=== PATIENT | female | born 1945 | race Caucasian/White ===

== ENCOUNTER 2024-09-04 13:00 | Inpatient (IN) | payer MEDICARE ==
[~2024-09-04] VITALS: Ht 152.4 cm; Wt 68.5 kg
[2024-09-04] MEDS: PIPERACILLIN/TAZO 3.375G/50ML 50 ML IV SCH (02:00)
[2024-09-04] MEDS: CALCIUM GLUCONATE 1GM PREMIX 50 ML IV NR (02:00)
[2024-09-04] MEDS: BLOOD SUGAR DIAGNOSTIC STRIP TEST SCH (02:00)
[2024-09-04] MEDS: INSULIN LISPRO 100 UNITS/ML SUBCUT SCH (03:00)
[2024-09-04] MEDS: FAMOTIDINE 20MG TABLET PO SCH (03:00)
[2024-09-04] MEDS: SODIUM CHLORIDE 0.9% (SEPSIS BOLUS) IV ONE (13:25)
[2024-09-04 13:43] LABS: HEMATOCRIT. 35.5 % (36.0-48.0); HEMOGLOBIN. 10.8 g/dL (12.0-16.0); MEAN CORPUSCULAR HEMOGLOBIN 29.5 pg (28.0-32.0); MEAN CORPUSCULAR HGB CONC 30.3 g/dL (31.0-37.0); MEAN CORPUSCULAR VOLUME 97.3 fL (81.0-99.0); MEAN PLATELET VOLUME 10.6 fl (7.4-10.4); PLATELET 254 x1000/uL (130-400); RED BLOOD CELL COUNT 3.65 mill/uL (4.2-5.4); RED CELL DISTRIBUTION WIDTH 16.4 % (11.6-14.6); WHITE BLOOD COUNT 17.1 x1000/uL (4.5-11.0)
[2024-09-04] MEDS: NOREPINEPHRINE 8MG/250ML PMX 250 ML IV ONE ×2 (13:44→21:44)
[2024-09-04 13:45] LABS: CHLORIDE 84 mEq/L (98-107); POTASSIUM 5.1 mEq/L (3.5-5.1); SODIUM 135 mEq/L (136-145)
[2024-09-04 13:46] LABS: CALCIUM 8.6 mg/dL (8.7-10.4)
[2024-09-04 13:51] LABS: GLUCOSE 149 mg/dL (70-105); UREA NITROGEN BLOOD 87 mg/dL (9-23)
[2024-09-04 13:52] LABS: DIFFERENTIAL COMMENT 1; TROPONIN I HIGH SENSITIVITY 12 ng/L (3.0-34)
[2024-09-04 13:53] LABS: ALANINE AMINOTRANSFERASE 12 IU/L (10-49); ALBUMIN 3.5 g/dL (3.2-4.8); ASPARTATE AMINOTRANSFERASE 12 IU/L (<34); BILIRUBIN TOTAL 0.2 mg/dL (0.1-1.0); PROTEIN TOTAL 6.1 g/dL (6.0-8.3)
[2024-09-04 14:03] LABS: CARBON DIOXIDE < 10 mEq/L (21-32); CREATININE 6.5 mg/dL (0.6-1.0)
[2024-09-04 14:04] LABS: BILIRUBIN DIRECT < 0.1 mg/dL (<=3.0)
[2024-09-04 14:06] LABS: LACTIC ACID 16.1 mmol/L (0.4-2.0)
[2024-09-04 14:24] LABS: INR 1.1; PROTHROMBIN TIME 12.1 sec (9.6-11.0)
[2024-09-04 15:43] LABS: ANISOCYTOSIS 1+; GIANT PLATELETS 1+; PLATELET ESTIMATE NORMAL
[2024-09-04] MEDS ORDERED: VANCOMYCIN 1G PREMIX 200 ML IV ONE (15:45)
[2024-09-04] MEDS: PIPERACILLIN/TAZO 3.375G/50ML 50 ML IV ONE (16:16)
[2024-09-04] MEDS ORDERED: MAGNESIUM/ALUMINUM HYDROXIDE/SIMETHICONE 30ML UDC PO PRN (16:30)
[2024-09-04] MEDS ORDERED: ONDANSETRON HCL 4MG/2ML INJ IV PRN (16:30)
[2024-09-04] MEDS: SODIUM BICARBONATE 8.4% 50MEQ/50ML SYR IV NR (16:30)
[2024-09-04] MEDS ORDERED: CLONIDINE 0.1MG TABLET PO PRN (16:30)
[2024-09-04] MEDS ORDERED: IPRATROPIUM/ALBUTEROL 0.5-3(2.5)MG/3ML NEB HHN PRN (16:30)
[2024-09-04] MEDS ORDERED: ACETAMINOPHEN 325MG TABLET PO PRN (16:30)
[2024-09-04] MEDS ORDERED: NOREPINEPHRINE 8 MG in DEXT 5% WATER 242 ML IV PRN (16:30)
[2024-09-04] MEDS ORDERED: DEXTROSE 50% WATER 50ML SYRINGE IV PRN (16:30)
[2024-09-04] MEDS ORDERED: NOREPINEPHRINE 8MG/250ML PMX 250 ML IV PRN (16:45)
[2024-09-04 17:36] LABS: T4 FREE 1.08 ng/dL (0.89-1.76)
[2024-09-04 17:37] LABS: THYROID STIMULATING HORMONE 3.21 uIU/mL (0.55-4.78)
[2024-09-04 17:50] LABS: HEPATITIS B SURFACE ANTIGEN NEGATIVE (Negative)
[2024-09-04] MEDS: SODIUM BICARBONATE 150 MEQ in DEXTROSE 5% WATER 850 ML IV SCH (18:04)
[2024-09-04] MEDS: VANCOMYCIN 1G PREMIX 200 ML IV NR (18:04)
[2024-09-04 18:10] LABS: HEPATITIS A AB IGM NEGATIVE (Negative)
[2024-09-04 18:11] LABS: HEPATITIS B CORE AB IGM NEGATIVE (Negative); HEPATITIS C AB NON REACTIVE (Neg) (Negative)
[2024-09-04] MEDS: SODIUM CHLORIDE 0.9% 1,000 ML IV SCH (18:13)
[2024-09-04] MEDS ORDERED: PHENYLEPHRINE 50 MG in DEXT 5% WATER 245 ML IV PRN (19:15)
[2024-09-04] MEDS ORDERED: PIPERACILLIN/TAZO 3.375G/50ML 50 ML IV SCH (21:00)
[2024-09-04] MEDS ORDERED: SODIUM CHLORIDE 0.9% 250 ML IV NR (21:00)
[2024-09-04 22:11] LABS: CHLORIDE 97 mEq/L (98-107); POTASSIUM 4.1 mEq/L (3.5-5.1)
[2024-09-04 22:13] LABS: CALCIUM 6.7 mg/dL (8.7-10.4)
[2024-09-04 22:17] LABS: GLUCOSE 207 mg/dL (70-105)
[2024-09-04 22:18] LABS: UREA NITROGEN BLOOD 87 mg/dL (9-23)
[2024-09-04 22:29] LABS: CREATINE KINASE 416 IU/L (34-145)
[2024-09-04 22:31] LABS: CARBON DIOXIDE < 10 mEq/L (21-32); SODIUM 147 mEq/L (136-145)
[2024-09-04 22:32] LABS: CREATININE 5.4 mg/dL (0.6-1.0); LACTIC ACID 18.4 mmol/L (0.4-2.0); PHOSPHORUS 12.6 mg/dL (2.5-4.9)
[2024-09-04 22:33] LABS: TROPONIN I HIGH SENSITIVITY 59 ng/L (3.0-34)
[2024-09-04] MEDS ORDERED: VASOPRESSIN 20 UNIT in SODIUM CHLORIDE 0.9% 99 ML IV PRN (23:45)
[2024-09-05] VITALS (83 sets, daily range): BP systolic 67–145; BP diastolic 38–121; PULSE 92–131; RESP 14–28; TEMP 35.78064–37.00296; O2SAT 91–100
[2024-09-05] MEDS: SODIUM BICARBONATE 8.4% 50MEQ/50ML SYR IV NR (00:33)
[2024-09-05] MEDS: PHENYLEPHRINE 100 MG in DEXT 5% WATER 250 ML IV PRN (01:34)
[2024-09-05] MEDS: VASOPRESSIN 20 UNIT in SODIUM CHLORIDE 0.9% 99 ML IV PRN (01:35)
[2024-09-05] MEDS: CALCIUM ACETATE 667MG CAPSULE PO NR (02:00)
[2024-09-05] MEDS ORDERED: AMIODARONE HCL 150 MG in DEXT 5% WATER 100 ML IV ONE (03:00)
[2024-09-05] MEDS ORDERED: AMIODARONE HCL 900 MG in DEXT 5% WATER 482 ML IV SCH (03:00)
[2024-09-05] MEDS: HYDROCORTISONE SOD SUCCINATE 100 MG/2 ML VIAL IV SCH (03:29)
[2024-09-05] MEDS: AMIODARONE 150MG/100ML PREMIX IV NR (03:29)
[2024-09-05] MEDS: NOREPINEPHRINE 8MG/250ML PMX 250 ML IV PRN ×2 (03:41→06:26)
[2024-09-05] MEDS ORDERED: PHENYLEPHRINE 50MG/250ML PMX 250 ML IV PRN (04:00)
[2024-09-05] MEDS ORDERED: VASOPRESSIN 20 UNIT in SODIUM CHLORIDE 0.9% 99 ML IV PRN (04:00)
[2024-09-05] MEDS: AMIODARONE 360MG/200ML D5W PREMIX IV SCH (04:03)
[2024-09-05 04:34] LABS: HEMATOCRIT. 28.1 % (36.0-48.0); HEMOGLOBIN. 8.8 g/dL (12.0-16.0); MEAN CORPUSCULAR HGB CONC 31.2 g/dL (31.0-37.0); MEAN CORPUSCULAR VOLUME 96.1 fL (81.0-99.0); MEAN PLATELET VOLUME 10.2 fl (7.4-10.4); PLATELET 193 x1000/uL (130-400); RED BLOOD CELL COUNT 2.93 mill/uL (4.2-5.4); WHITE BLOOD COUNT 16.5 x1000/uL (4.5-11.0)
[2024-09-05 04:37] LABS: CHLORIDE 97 mEq/L (98-107); POTASSIUM 4.8 mEq/L (3.5-5.1); SODIUM 147 mEq/L (136-145)
[2024-09-05 04:39] LABS: CALCIUM 6.7 mg/dL (8.7-10.4)
[2024-09-05 04:42] LABS: LACTIC ACID 15.3 mmol/L (0.4-2.0)
[2024-09-05 04:43] LABS: GLUCOSE 354 mg/dL (70-105)
[2024-09-05 04:44] LABS: UREA NITROGEN BLOOD 85 mg/dL (9-23)
[2024-09-05 05:01] LABS: CARBON DIOXIDE < 10 mEq/L (21-32); CREATININE 5.3 mg/dL (0.6-1.0)
[2024-09-05 05:25] LABS: DIFFERENTIAL COMMENT 1
[2024-09-05] MEDS ORDERED: DEXTROSE 50% WATER 50ML SYRINGE IV PRN (08:30)
[2024-09-05] MEDS: NOREPINEPHRINE 32 MG in DEXT 5% WATER 218 ML IV PRN (08:48)
[2024-09-05] MEDS: FAMOTIDINE 20MG TABLET PO SCH (09:00)
[2024-09-05] MEDS: ASPIRIN 81MG TABLET PO SCH (09:00)
[2024-09-05] MEDS: INSULIN LISPRO 100 UNITS/ML SUBCUT SCH (09:11)
[2024-09-05] MEDS: ENOXAPARIN 30MG/0.3ML SYR SUBCUT SCH (09:12)
[2024-09-05] MEDS: INSULIN GLARGINE 100 UNITS/ML SUBCUT SCH (09:13)
[2024-09-05] MEDS ORDERED: INSULIN GLARGINE 100 UNITS/ML SUBCUT SCH (10:00)
[2024-09-05 10:17] LABS: ANISOCYTOSIS 1+; NUCLEATED RED BLOOD CELLS 1 /100 WBC; PLATELET ESTIMATE NORMAL
[2024-09-05 10:29] LABS: CLARITY URINE CLEAR (CLEAR); COLOR URINE YELLOW (YELLOW); GLUCOSE URINE 3+ (NEGATIVE); PH URINE 5.5 (4.5-8.0); PROTEIN URINE 1+ (NEGATIVE); SPECIFIC GRAVITY URINE 1.014 (1.005-1.030)
[2024-09-05 10:30] LABS: KETONES URINE 3+ (NEGATIVE); LEUKOCYTE ESTERASE URINE TRACE (NEGATIVE); NITRITE URINE NEGATIVE (NEGATIVE); OCCULT BLOOD URINE 2+ (NEGATIVE); UROBILINOGEN URINE 0.2 E.U./dL (0.2-1.0)
[2024-09-05 10:52] LABS: SQUAMOUS EPITHELIAL CELL URINE FEW /lpf (RARE/1+)
[2024-09-05 10:53] LABS: BACTERIA URINE TRACE; RBC URINE 0-2 /hpf (0-2)
[2024-09-05 11:15] LABS: *AMPHETAMINES SCREEN URINE NEGATIVE (NEGATIVE); *BARBITURATES SCREEN URINE NEGATIVE (NEGATIVE); *BENZODIAZEPINES SCREEN URINE NEGATIVE (NEGATIVE); *COCAINE SCREEN URINE NEGATIVE (NEGATIVE); CANNABINOID URINE SCREEN NEGATIVE (NEGATIVE); ECSTASY MDMA SCREEN URINE NEGATIVE (NEGATIVE); METHADONE URINE SCREEN NEGATIVE (NEGATIVE); OPIATES URINE SCREEN NEGATIVE (NEGATIVE); PHENCYCLIDINE URINE SCREEN NEGATIVE (NEGATIVE)
[2024-09-05 11:55] LABS: BG CARBOXYHEMOGLOBIN 0.3 % (0.5-1.5); BG DEOXYHEMOGLOBIN 4.4 % (0.0-5.0); BG FRACTION INSPIRED OXYGEN 21; BG HCO3 ACT 14.9 mmol/L (21.0-28.0); BG METHEMOGLOBIN 0.3 % (0.5-1.5); BG OXYGEN SATURATION 95.6 % (94.0-98.0); BG PCO2 18.3 mmHg (32.0-45.0); BG PO2 73.9 mmHg (83.0-108.0); BG VENT MODE ROOM AIR
[2024-09-05] MEDS: SODIUM BICARBONATE 150 MEQ in DEXTROSE 5% WATER 850 ML IV SCH (12:41)
[2024-09-05] MEDS: BLOOD SUGAR DIAGNOSTIC STRIP TEST SCH (12:41)
[2024-09-05 17:07] LABS: POTASSIUM 3.2 mEq/L (3.5-5.1)
[2024-09-05 17:09] LABS: CALCIUM 7.1 mg/dL (8.7-10.4)
[2024-09-05 17:16] LABS: BETA HYDROXYBUTYRATE 4.5 mMol/L (0.0-0.3)
[2024-09-05] MEDS: VANCOMYCIN 500MG PREMIX 100 ML IV SCH (18:23)
[2024-09-05] MEDS ORDERED: POTASSIUM CHLORIDE 20 MEQ in DEXT 5% WATER 90 ML IV ONE (19:00)
[2024-09-05] MEDS: METOPROLOL SUCCINATE 50MG ER TABLET PO SCH (19:15)
[2024-09-05] MEDS: KCL 20MEQ/100ML PREMIX 100 ML IV SCH (20:01)
[2024-09-05 20:08] LABS: PHOSPHORUS 2.9 mg/dL (2.5-4.9)
[2024-09-06] VITALS (98 sets, daily range): BP systolic 61–142; BP diastolic 35–129; PULSE 80–133; RESP 13–25; TEMP 36.61404–37.16964; O2SAT 90–100
[2024-09-06] MEDS ORDERED: FURO80TA3 MT (00:03)
[2024-09-06] MEDS ORDERED: RIVA20TA MT (00:03)
[2024-09-06] MEDS ORDERED: SIMV-43 MT (00:03)
[2024-09-06] MEDS ORDERED: COR12 MT (00:03)
[2024-09-06] MEDS ORDERED: EMPA25TA MT (00:03)
[2024-09-06] MEDS ORDERED: AMLO10TA80 MT (00:03)
[2024-09-06] MEDS ORDERED: METF-1150 PO (00:03)
[2024-09-06] MEDS ORDERED: ENAL-77 MT (00:03)
[2024-09-06] MEDS: MAGNESIUM 2 G PREMIX 50 ML IV NR (00:08)
[2024-09-06 06:34] LABS: CARBON DIOXIDE 33 mEq/L (21-32); CHLORIDE 96 mEq/L (98-107); POTASSIUM 3.4 mEq/L (3.5-5.1); SODIUM 141 mEq/L (136-145)
[2024-09-06 06:35] LABS: CALCIUM 6.8 mg/dL (8.7-10.4)
[2024-09-06 06:39] LABS: CREATININE 2.7 mg/dL (0.6-1.0); GLUCOSE 268 mg/dL (70-105)
[2024-09-06 06:40] LABS: UREA NITROGEN BLOOD 41 mg/dL (9-23)
[2024-09-06 06:42] LABS: PHOSPHORUS 2.3 mg/dL (2.5-4.9)
[2024-09-06 06:55] LABS: HEMATOCRIT. 30.2 % (36.0-48.0); HEMOGLOBIN. 10.3 g/dL (12.0-16.0); MEAN CORPUSCULAR HEMOGLOBIN 29.7 pg (28.0-32.0); MEAN CORPUSCULAR HGB CONC 34.3 g/dL (31.0-37.0); MEAN CORPUSCULAR VOLUME 86.7 fL (81.0-99.0); MEAN PLATELET VOLUME 9.5 fl (7.4-10.4); PLATELET 150 x1000/uL (130-400); RED BLOOD CELL COUNT 3.48 mill/uL (4.2-5.4); RED CELL DISTRIBUTION WIDTH 14.8 % (11.6-14.6); WHITE BLOOD COUNT 12.4 x1000/uL (4.5-11.0)
[2024-09-06 07:19] LABS: DIFFERENTIAL COMMENT 1
[2024-09-06] MEDS: INSULIN GLARGINE 100 UNITS/ML SUBCUT SCH (09:40)
[2024-09-06 10:45] LABS: PLATELET ESTIMATE NORMAL
[2024-09-06] MEDS: POTASSIUM PHOSPHATE 20 MMOL in SODIUM CHLORIDE 0.9% 243.3333 ML IV NR (11:00)
[2024-09-06] MEDS: AMIODARONE 200MG TABLET PO NR (14:51)
[2024-09-06] MEDS: SODIUM CHLORIDE 0.45% 1,000 ML IV SCH (16:17)
[2024-09-06] MEDS: ATORVASTATIN CALCIUM 10MG TABLET PO SCH (21:16)
[2024-09-06] MEDS: AMIODARONE 200MG TABLET PO SCH (21:16)
[2024-09-07] VITALS (78 sets, daily range): BP systolic 82–128; BP diastolic 45–98; PULSE 74–106; RESP 12–27; TEMP 36.6696–37.00296; O2SAT 89–100
[2024-09-07 05:59] LABS: CHLORIDE 100 mEq/L (98-107); SODIUM 141 mEq/L (136-145)
[2024-09-07 06:00] LABS: CALCIUM 6.7 mg/dL (8.7-10.4); CARBON DIOXIDE 33 mEq/L (21-32)
[2024-09-07 06:05] LABS: GLUCOSE 70 mg/dL (70-105); UREA NITROGEN BLOOD 29 mg/dL (9-23)
[2024-09-07 06:06] LABS: HEMATOCRIT. 28.9 % (36.0-48.0); HEMOGLOBIN. 9.6 g/dL (12.0-16.0); MEAN CORPUSCULAR HEMOGLOBIN 29.2 pg (28.0-32.0); MEAN CORPUSCULAR HGB CONC 33.3 g/dL (31.0-37.0); MEAN CORPUSCULAR VOLUME 87.7 fL (81.0-99.0); MEAN PLATELET VOLUME 9.4 fl (7.4-10.4); PLATELET 105 x1000/uL (130-400); RED BLOOD CELL COUNT 3.29 mill/uL (4.2-5.4); WHITE BLOOD COUNT 12.3 x1000/uL (4.5-11.0)
[2024-09-07 06:07] LABS: PHOSPHORUS 3.1 mg/dL (2.5-4.9)
[2024-09-07 07:16] LABS: DIFFERENTIAL COMMENT 1
[2024-09-07 07:53] LABS: CREATININE 1.8 mg/dL (0.6-1.0)
[2024-09-07 07:54] LABS: POTASSIUM 2.6 mEq/L (3.5-5.1)
[2024-09-07] MEDS ORDERED: POTASSIUM CHLORIDE 40 MEQ in DEXT 5% WATER 230 ML IV ONE ×2 (08:00→15:00)
[2024-09-07] MEDS: MAGNESIUM 2 G PREMIX 50 ML IV SCH (08:22)
[2024-09-07 09:11] LABS: COMPLEMENT C3 64 mg/dL (82-167); COMPLEMENT C4 20 mg/dL (12-38)
[2024-09-07] MEDS: KCL 20MEQ/100ML X 2 FOR TOTAL KCL 40MEQ/200ML IV SCH ×2 (10:42→17:09)
[2024-09-07] MEDS: INSULIN GLARGINE 100 UNITS/ML SUBCUT SCH (10:42)
[2024-09-07 13:06] LABS: ANTI-NUCLEAR ANTIBODIES DIRECT Negative (Negative)
[2024-09-07] MEDS: HYDROCORTISONE SOD SUCCINATE 100 MG/2 ML VIAL IV SCH (13:47)
[2024-09-07] MEDS: MIDODRINE HCL 5MG TABLET PO SCH (17:09)
[2024-09-07] MEDS ORDERED: RIVAROXABAN 10 MG TABLET PO SCH ×2 (18:20)
[2024-09-07] MEDS: RIVAROXABAN 15 MG TABLET PO SCH (18:35)
[2024-09-07 19:08] LABS: CHLORIDE 101 mEq/L (98-107); POTASSIUM 4.3 mEq/L (3.5-5.1); SODIUM 140 mEq/L (136-145)
[2024-09-07 19:09] LABS: CARBON DIOXIDE 30 mEq/L (21-32)
[2024-09-07 19:10] LABS: CALCIUM 7.4 mg/dL (8.7-10.4)
[2024-09-07 19:14] LABS: CREATININE 1.6 mg/dL (0.6-1.0); GLUCOSE 217 mg/dL (70-105)
[2024-09-07 19:15] LABS: UREA NITROGEN BLOOD 27 mg/dL (9-23)
[2024-09-07 19:16] LABS: ALANINE AMINOTRANSFERASE 28 IU/L (10-49); ASPARTATE AMINOTRANSFERASE 44 IU/L (<34)
[2024-09-07 19:17] LABS: BILIRUBIN TOTAL 0.4 mg/dL (0.1-1.0); PROTEIN TOTAL 4.9 g/dL (6.0-8.3)
[2024-09-07 19:18] LABS: T4 FREE 0.88 ng/dL (0.89-1.76); THYROID STIMULATING HORMONE 1.88 uIU/mL (0.55-4.78)
[2024-09-07 20:12] LABS: PLATELET ESTIMATE NORMAL
[2024-09-08] VITALS (45 sets, daily range): BP systolic 81–123; BP diastolic 41–73; PULSE 75–101; RESP 12–25; TEMP 35.72508–36.9474; O2SAT 91–99
[2024-09-08 05:53] LABS: HEMATOCRIT. 26.2 % (36.0-48.0); HEMOGLOBIN. 8.8 g/dL (12.0-16.0); MEAN CORPUSCULAR HEMOGLOBIN 29.6 pg (28.0-32.0); MEAN CORPUSCULAR HGB CONC 33.6 g/dL (31.0-37.0); MEAN CORPUSCULAR VOLUME 88.1 fL (81.0-99.0); MEAN PLATELET VOLUME 9.5 fl (7.4-10.4); PLATELET 94 x1000/uL (130-400); RED BLOOD CELL COUNT 2.97 mill/uL (4.2-5.4); RED CELL DISTRIBUTION WIDTH 14.7 % (11.6-14.6); WHITE BLOOD COUNT 11.8 x1000/uL (4.5-11.0)
[2024-09-08 05:54] LABS: CARBON DIOXIDE 30 mEq/L (21-32); CHLORIDE 106 mEq/L (98-107); POTASSIUM 3.1 mEq/L (3.5-5.1); SODIUM 142 mEq/L (136-145)
[2024-09-08 05:55] LABS: CALCIUM 7.1 mg/dL (8.7-10.4)
[2024-09-08 05:59] LABS: CREATININE 1.3 mg/dL (0.6-1.0); GLUCOSE 72 mg/dL (70-105)
[2024-09-08 06:01] LABS: UREA NITROGEN BLOOD 26 mg/dL (9-23)
[2024-09-08 06:03] LABS: PHOSPHORUS 1.9 mg/dL (2.5-4.9)
[2024-09-08 07:20] LABS: DIFFERENTIAL COMMENT 1
[2024-09-08] MEDS: MIDODRINE HCL 5MG TABLET PO SCH (09:00)
[2024-09-08] MEDS: AMIODARONE 200MG TABLET PO SCH (09:30)
[2024-09-08] MEDS: POTASSIUM CHLORIDE 20MEQ/PACKET PO SCH (11:23)
[2024-09-08] MEDS: SODIUM CHLORIDE 0.9% 1,000 ML IV SCH (11:23)
[2024-09-08 14:08] LABS: PLATELET ESTIMATE SLIGHTLY DECREASED
[2024-09-08 20:53] LABS: PHOSPHORUS 2.1 mg/dL (2.5-4.9)
[2024-09-08] MEDS: HYDROCORTISONE SOD SUCCINATE 100 MG/2 ML VIAL IV SCH (21:36)
[2024-09-09] VITALS: BP 99/52; PULSE 101; RESP 18; O2SAT 100
[2024-09-09 04:00] VITALS: BP 110/61; PULSE 85; RESP 18; TEMP 36.22512
[2024-09-09] MEDS: AMIODARONE 200MG TABLET PO SCH (09:28)
[2024-09-09] MEDS ORDERED: LEVO750T68 PO (09:42)
[2024-09-09] MEDS ORDERED: AMI2 PO (09:49)
[2024-09-09] MEDS ORDERED: METH4TAB95 MT (09:49)
[2024-09-09] MEDS ORDERED: XAR15 MT (09:49)
[2024-09-09 11:25] VITALS: BP 134/65; PULSE 100; TEMP 98.4; O2SAT 96
[2024-09-09 12:00] VITALS: BP 133/63; PULSE 93; RESP 15; TEMP 36.3918; TEMP 36.39180; O2SAT 96
[2024-09-09 13:14] LABS: HEMATOCRIT 28.6 % (36.0-48.0); HEMOGLOBIN 9.5 g/dL (12.0-16.0); MEAN CORPUSCULAR HEMOGLOBIN 29.5 pg (28.0-32.0); MEAN CORPUSCULAR HGB CONC 33.1 g/dL (31.0-37.0); PLATELET 102 x1000/uL (130-400); RED BLOOD CELL COUNT 3.21 mill/uL (4.2-5.4); RED CELL DISTRIBUTION WIDTH 15.4 % (11.6-14.6); WHITE BLOOD COUNT 7.7 x1000/uL (4.5-11.0)
[2024-09-09 13:17] LABS: CHLORIDE 109 mEq/L (98-107); POTASSIUM 4.2 mEq/L (3.5-5.1); SODIUM 142 mEq/L (136-145)
[2024-09-09 13:18] LABS: CALCIUM 8.1 mg/dL (8.7-10.4); CARBON DIOXIDE 26 mEq/L (21-32)
[2024-09-09 13:23] LABS: CREATININE 1.1 mg/dL (0.6-1.0); GLUCOSE 193 mg/dL (70-105); UREA NITROGEN BLOOD 22 mg/dL (9-23)
[2024-09-09 13:25] LABS: PHOSPHORUS 2.5 mg/dL (2.5-4.9)
== END 2024-09-09 14:00 | disposition home or self-care (01) | DRG 871 ==
LOC: ER 13:00 → CVICU 15:40 → EDBEDREQTM 15:51 → EDBEDREQ 15:51 → 7EST 09-08 18:28
PROVIDERS: ADMIT Internal Medicine; ATTEND Internal Medicine
PROC: 5A1D70Z Performance of Urinary Filtration, Intermittent, Less than 6 Hours Per Day (ICD-10-PCS; principal; 2024-09-05)
DX: A41.9 Sepsis, unspecified organism (principal); G92.8 Other toxic encephalopathy; J96.01 Acute respiratory failure with hypoxia; R65.21 Severe sepsis with septic shock; N17.0 Acute kidney failure with tubular necrosis; E87.21 Acute metabolic acidosis; N39.0 Urinary tract infection, site not specified; E87.0 Hyperosmolality and hypernatremia; I48.20 Chronic atrial fibrillation, unspecified; I24.9 Acute ischemic heart disease, unspecified; R79.89 Other specified abnormal findings of blood chemistry; E87.5 Hyperkalemia; A08.4 Viral intestinal infection, unspecified; E83.39 Other disorders of phosphorus metabolism; I49.3 Ventricular premature depolarization; N18.9 Chronic kidney disease, unspecified; E11.22 Type 2 diabetes mellitus with diabetic chronic kidney disease; I12.9 Hypertensive chronic kidney disease with stage 1 through stage 4 chronic kidney disease, or unspecified chronic kidney disease; E86.0 Dehydration; E87.6 Hypokalemia; E83.42 Hypomagnesemia; D64.9 Anemia, unspecified; E78.5 Hyperlipidemia, unspecified; Z79.01 Long term (current) use of anticoagulants; Z79.4 Long term (current) use of insulin; Z79.84 Long term (current) use of oral hypoglycemic drugs; Z79.899 Other long term (current) drug therapy; I69.30 Unspecified sequelae of cerebral infarction
CPT/HCPCS: 36415; 36600; 71045; 76770; 80048; 80053; 80061; 80076; 80202; 80305; 81003; 82010; 82375; 82533; 82550; 82805; 82962; 83036; 83605; 83735; 84100; 84145; 84439; 84443; 84484; 85025; 85027; 86038; 86160; 86705; 86709; 87015; 87045; 87077; 87177; 87186; 87209; 87340; 87427; 87449; 89055; 90935; 92610; 93005; 93306; 93970; 99291; J0282; J0610; J1650; J1720; J1815; J2543; J3370; J3475; J3480; J3490; J7030; J7050; J7060; J7070